=== PATIENT | female | born 1985 | race African-American/Black ===

== ENCOUNTER 2016-10-19 09:55 | Emergency (ER) | payer MEDICAID ==
[~2016-10-19] VITALS: Ht 170.2 cm; Wt 72.0 kg
[2016-10-19 09:58] VITALS: BP 112/63; PULSE 63; RESP 18; TEMP 98.7; O2SAT 100
[2016-10-19] MEDS ORDERED: ACETAMINOPHEN 650 MG/20.3 ML UDC PO ONE (10:30)
--- NOTE | 2016-10-19 10:46 | RADHPO ---
EXAM DATE/TIME: 10/19/2016 10:29 [facility] COMPARISON: No previous studies available for comparison. INDICATIONS : Cough MEDICAL HISTORY : ASthma SURGICAL HISTORY : None. ENCOUNTER: Initial ACUITY: 4 - 6 days PAIN SCORE: 0/10 LOCATION: Bilateral chest FINDINGS: PA and lateral views of the chest demonstrate the lungs to be symmetrically aerated without evidence of mass, infiltrate or effusion. The cardiomediastinal contours are unremarkable. Osseous structure s are intact. CONCLUSION: No acute disease. Marcelo Calhoun MD FACR on October 19, 2016 at 10:42 Board Certified Radiologist. This report was verified electronically.
--- NOTE | 2016-10-19 10:46 | PD ---
HPI Chief Complaint: Cold / Flu Symptoms Time Seen by Provider: 10:14 Travel History International Travel<30 days: No Contact w/Intl Traveler<30days: No Traveled to known affect area: No History of Present Illness HPI 31yo F with no PMH presents to the ED with c/o generalized muscle aches, cough, nasal congestion, rhinorrhea, throat pain, chest pain when she coughs for 5-6 days. States she last had fever 5 days ago. Her kids were sick too and they had recovered. Feels like last time she had a flu. Denies any sob, vomiting, abdominal pain, focal weakness or numbness or diarrhea. PFSH Past Medical History Asthma: Yes ?: Not LMP: 09/29/16 Past Surgical History Cholecystectomy: Yes Social History Alcohol Use: No Tobacco Use: Yes Substance Use: No Allergies-Medications (Allergen,Severity, Reaction): Coded Allergies: Penicillin (Verified Allergy, Unknown, 10/19/16) Reported Meds & Prescriptions Reported Meds & Active Scripts Active No Active Prescriptions or Reported Medications Review of Systems Except as stated in HPI: all other systems reviewed are Neg Physical Exam Narrative GENERAL: 31yo F in mild distress. SKIN: Focused skin assessment warm/dry. HEAD: Atraumatic. Normocephalic. EYES: Pupils equal and round. No scleral icterus. No injection or drainage. ENT:Throat: clear. Uvula midline. No exudate or erythema. NECK: No nuchal rigidity. CARDIOVASCULAR: Regular rate and rhythm. No murmur appreciated. RESPIRATORY: No accessory muscle use. Clear to auscultation. Breath sounds equal bilaterally. CHEST WALL: +TTP midsternal. No rash. GASTROINTESTINAL: Abdomen soft, non-tender, nondistended. Hepatic and splenic margins not palpable. MUSCULOSKELETAL: No obvious deformities. No clubbing. No cyanosis. No edema. NEUROLOGICAL: Awake and alert. No obvious cranial nerve deficits. Motor grossly within normal limits. Normal speech. PSYCHIATRIC: Appropriate mood and affect; insight and judgment normal. Data Data Last Documented VS Vital Signs Date Time Temp Pulse Resp B/P Pulse Ox O2 Delivery O2 Flow Rate FiO2 10/19/16 11:52 18 10/19/16 11:52 61 97/49 100 Room Air 10/19/16 09:58 98.7 Orders Electrocardiogram (10/19/16 ) Chest, Pa & Lat (10/19/16 ) Acetaminophen 650 Mg/20 Ml Liq (Tylenol (10/19/16 10:30) Influenzae A/B Antigen (10/19/16 10:19) MDM Medical Decision Making Medical Screen Exam Complete: Yes Emergency Medical Condition: Yes Interpretation(s) EKG: Sinus bradycardia at 55bpm. Normal axis. TWI V2. No ST segment elevation or depression. Last Impressions Chest X-Ray 10/19/16 0000 Signed Impressions: Service Date/Time: Wednesday, October 19, 2016 10:29 - CONCLUSION: No acute disease. Marcelo Calhoun MD FACR Differential Diagnosis Viral syndrome vs. pneumonia vs. bronchitis vs. influenza Narrative Course 31yo F with flu like symptoms. Chest pain is very atypical and more musculoskeletal. Pt given acetaminophen which helped with the pain. Influenza negative. CXR showed no acute disease. Pt is nontoxic appearing. Tolerating PO. Pt would like a few days off. Return precautions given. Diagnosis Primary Impression: Flu-like symptoms Patient Instructions: General Instructions Departure Forms: Tests/Procedures, Work Release Enter return to work date: Oct 21, 2016 Additional Instructions: Please follow up with your PMD in 3-7 days. Return to the ED if symptoms worsen. Med/Other Pt SpecificInfo: Prescription(s) given Scripts Dextromethorphan (Robitussin Lingering Cold)15 Mg Cap30 Mg PO Q6H PRN (COUGH) 5 Days Ref 0 Prov:Doreen Leung DO 10/19/16 Acetaminophen (Tylenol)325 Mg Iiv882 Mg PO Q6H PRN (PAIN SCALE 1 TO 4) #20 TAB Ref 0 Prov:Doreen Leung DO 10/19/16 Disposition: 01 DISCHARGE HOME Condition: Stable Doreen Leung DO Oct 19, 2016 10:46
[2016-10-19 11:52] VITALS: BP 97/49; PULSE 61; RESP 18; O2SAT 100
[2016-10-19] MEDS ORDERED: TYLE325T PO (12:29)
[2016-10-19] MEDS ORDERED: ROBICAP2 PO (12:29)
[2016-10-19 12:31] VITALS: BP 101/55
--- NOTE | 2016-10-19 13:43 | EKG ---
Date Performed: 10/19/2016 Time Performed: 10:23:36 PTAGE: 31 years EKG: Sinus bradycardia Septal T wave changes are normal for age and race Borderline ECG NO PREVIOUS TRACING DOCTOR: Hugo Estrada Interpretating Date/Time 10/19/2016 13:41:33
== END 2016-10-19 12:46 | disposition home or self-care (01) ==
LOC: PHEFT 09:55
DX: J11.1 Influenza due to unidentified influenza virus with other respiratory manifestations (principal); R00.1 Bradycardia, unspecified; J45.909 Unspecified asthma, uncomplicated
CPT/HCPCS: 71020; 87804; 93005; 99285

== ENCOUNTER 2016-10-19 13:05 | Emergency (ER) | payer MEDICAID ==
[~2016-10-19 13:05] MED LIST: ROBICAP2 PO; TYLE325T PO
[2016-10-19 13:07] VITALS: BP 114/56; PULSE 60; RESP 16; TEMP 98.7; O2SAT 100
== END 2016-10-19 17:40 | disposition left against medical advice (07) ==
LOC: NED 13:05
DX: R42 Dizziness and giddiness (principal)
CPT/HCPCS: 99281

== ENCOUNTER 2017-07-28 16:16 | Emergency (ER) | payer MEDICAID, OTHER ==
[~2017-07-28] VITALS: Ht 170.2 cm; Wt 67.3 kg
[2017-07-28 16:50] VITALS: BP 116/48; PULSE 74; RESP 16; TEMP 99.4; O2SAT 100
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
[2017-07-28] MEDS ORDERED: KETOROLAC TROMETHAMINE 60 MG/2 ML (IM) VIAL IM ONE (18:00)
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
[2017-07-28] MEDS ORDERED: ROBA750T PO (18:10)
[2017-07-28] MEDS ORDERED: IBUP1TAB7 PO (18:10)
[2017-07-28] MEDS ORDERED: IBUPROFEN 800 MG TAB PO ONE (18:30)
== END 2017-07-28 18:38 | disposition home or self-care (01) ==
LOC: PHEFT 16:16
DX: S29.012A Strain of muscle and tendon of back wall of thorax, initial encounter (principal); T14.8XXA Other injury of unspecified body region, initial encounter; J45.909 Unspecified asthma, uncomplicated; V49.50XA Passenger injured in collision with unspecified motor vehicles in traffic accident, initial encounter; Y92.410 Unspecified street and highway as the place of occurrence of the external cause; Z72.0 Tobacco use; Z88.0 Allergy status to penicillin
CPT/HCPCS: 70450; 72072; 72125; 73090; 73120; 73502; 84703; 96372; 99284